=== PATIENT | female | born 1975 | race African-American/Black ===

== ENCOUNTER 2018-02-14 22:21 | Observation (INO) | payer OTHER ==
[~2018-02-14] VITALS: Ht 172.7 cm; Wt 121.9 kg
[2018-02-15] VITALS (13 sets, daily range): BP systolic 112–167; BP diastolic 57–99; PULSE 55–79; RESP 14–20; TEMP 97.6–99.4; O2SAT 97–100
[2018-02-15] MEDS ORDERED: LO LTAB PO (00:32)
[2018-02-15] MEDS ORDERED: ZOFR4TAB3 SL (00:32)
[2018-02-15] MEDS ORDERED: HYOS1TAB9 PO (00:32)
[2018-02-15] MEDS ORDERED: ADDE10 PO (00:32)
--- NOTE | 2018-02-15 00:50 | PD ---
HPI Chief Complaint: GI Complaint Time Seen by Provider: 00:38 Travel History International Travel<30 days: No Contact w/Intl Traveler<30days: No Traveled to known affect area: No History of Present Illness HPI The patient is a 42-year-old female that complains of nausea for 3 weeks which is intermittent and vomiting just today. She has abdominal pain which at its worst would be a 7/10 and intermittent and sharp/cramping sensation. She denies any blood in the stool. She denies any melanotic or bloody stools. She denies any fever. She has some slight loose stools but denies diarrhea. She states she takes control pills regularly and cannot be . [facility] Past Medical History ADD: Yes Diminished Hearing: No Hypertension: Yes (controlled by diet) Tetanus Vaccination: < 5 Years Influenza Vaccination: No ?: Not LMP: 01/27/18 Past Surgical History Surgical History: No Previous Surgery Social History Alcohol Use: No Tobacco Use: No Substance Use: No Allergies-Medications (Allergen,Severity, Reaction): Coded Allergies: Penicillins (Verified Allergy, Severe, Swelling, 02/15/18) Rash Reported Meds & Prescriptions Reported Meds & Active Scripts Active Reported Adderall (Amphetamine-Dextroamphetamine) 10 Mg Tab 10 Mg PO DIRECTED Take 10 mg in the morning & 5 mg (1/2 tab) at noon. Lo Loestrin Fe 1/10 (Norethindrone-Ethinyl Estradiol-Fe) 1-10 Mg-Mcg Tab 1 Tab PO DAILY Review of Systems Except as stated in HPI: all other systems reviewed are Neg Physical Exam Narrative GENERAL: The patient is alert, oriented 3, minimally dehydrated appearing in minimal apparent distress with abdominal discomfort. Her vital signs show temperature 99.3 and blood pressure 167/95 but are otherwise normal. SKIN: Focused skin assessment warm/dry. HEAD: Atraumatic. Normocephalic. EYES: Pupils equal and round. No scleral icterus. No injection or drainage. ENT: No nasal bleeding or discharge. Mucous membranes pink and moist. NECK: Trachea midline. No JVD. CARDIOVASCULAR: Regular rate and rhythm. No murmur appreciated. RESPIRATORY: No accessory muscle use. Clear to auscultation. Breath sounds equal bilaterally. GASTROINTESTINAL: Abdomen soft, with minimal discomfort to deep direct palpation in the midline epigastrium, nondistended. Hepatic and splenic margins not palpable. No guarding or rebound is present. No flank tenderness is present. MUSCULOSKELETAL: No obvious deformities. No clubbing. No cyanosis. No edema. NEUROLOGICAL: Awake and alert. No obvious cranial nerve deficits. Motor grossly within normal limits. Normal speech. PSYCHIATRIC: Appropriate mood and affect; insight and judgment normal. Data Data Last Documented VS Vital Signs Date Time Temp Pulse Resp B/P (MAP) Pulse Ox O2 Delivery O2 Flow Rate FiO2 02/15/18 00:54 98 Room Air 02/15/18 00:25 18 02/15/18 00:24 76 02/15/18 00:02 99.3 Orders Orders Complete Blood Count With Diff (02/15/18 00:33) Comprehensive Metabolic Panel (02/15/18 00:33) Urinalysis - C+S If Indicated (02/15/18 00:33) Ed Urine Pregnancytest Poc (02/15/18 00:33) Iv Access Insert/Monitor (02/15/18 00:33) Oximetry (02/15/18 00:33) Lipase (02/15/18 00:33) Urine Culture (02/15/18 00:49) Levofloxacin 500 Mg Premix Inj (Levaquin (02/15/18 02:00) Sodium Chlor 0.9% 1000 Ml Inj (Ns 1000 M (02/15/18 02:00) Ondansetron Inj (Zofran Inj) (02/15/18 02:00) Admit Order (Ed Use Only) (02/15/18 02:25) Labs Laboratory Tests Test 02/15/18 00:49 White Blood Count 9.2 TH/MM3 Red Blood Count 4.70 MIL/MM3 Hemoglobin 12.2 GM/DL Hematocrit 37.6 % Mean Corpuscular Volume 80.0 FL Mean Corpuscular Hemoglobin 25.9 PG Mean Corpuscular Hemoglobin Concent 32.4 % Red Cell Distribution Width 13.4 % Platelet Count 371 TH/MM3 Mean Platelet Volume 8.7 FL Neutrophils (%) (Auto) 49.5 % Lymphocytes (%) (Auto) 27.1 % Monocytes (%) (Auto) 5.6 % Eosinophils (%) (Auto) 15.6 % Basophils (%) (Auto) 2.2 % Neutrophils # (Auto) 4.6 TH/MM3 Lymphocytes # (Auto) 2.5 TH/MM3 Monocytes # (Auto) 0.5 TH/MM3 Eosinophils # (Auto) 1.4 TH/MM3 Basophils # (Auto) 0.2 TH/MM3 CBC Comment DIFF FINAL Differential Comment Urine Color YELLOW Urine Turbidity SL CLOUDY Urine pH 5.5 Urine Specific [place] 1.015 Urine Protein NEG mg/dL Urine Glucose (UA) NEG mg/dL Urine Ketones NEG mg/dL Urine Occult Blood TRACE Urine Nitrite NEG Urine Bilirubin NEG Urine Urobilinogen 0.2 MG/DL Urine Leukocyte Esterase MOD Urine RBC 0-3 /hpf Urine WBC 20-24 /hpf Urine Squamous Epithelial Cells > 8 /hpf Urine Bacteria MANY /hpf Microscopic Urinalysis Comment CULTURE INDICATED Blood Urea Nitrogen 6 MG/DL Creatinine 0.63 MG/DL Random Glucose 109 MG/DL Total Protein 8.0 GM/DL Albumin 3.5 GM/DL Calcium Level 9.1 MG/DL Alkaline Phosphatase 67 U/L Aspartate Amino Transf (AST/SGOT) 10 U/L Alanine Aminotransferase (ALT/SGPT) 11 U/L Total Bilirubin 0.3 MG/DL Sodium Level 138 MEQ/L Potassium Level 3.5 MEQ/L Chloride Level 105 MEQ/L Carbon Dioxide Level 28.2 MEQ/L Anion Gap 5 MEQ/L Estimat Glomerular Filtration Rate 127 ML/MIN Triglycerides Level 85 MG/DL Lipase 3247 U/L [facility] Medical Decision Making Medical Screen Exam Complete: Yes Emergency Medical Condition: Yes Medical Record Reviewed: Yes Interpretation(s) The CBC is normal. The complete metabolic profile is normal. The lipase is 3247. The urine shows moderate leukocyte esterase, 20-24 white cells with many bacteria and culture is indicated. Impressions: Pancreatitis, urinary tract infection Differential Diagnosis Gastritis, gastroenteritis, pancreatitis, small bowel obstruction Narrative Course The patient has pancreatitis. The patient will be admitted to the [facility] service. The patient, according to her history does not abuse alcohol. Possible complications for this pancreatitis or gallstone pancreatitis, viral pancreatitis, hyperlipidemia. Physician Communication Physician Communication I discussed the patient with Dr. Ascencio. Admitting Information Admitting Physician Requests: Admit Scripts Pantoprazole (Pantoprazole) 40 Mg Tab 40 MG PO DAILY for Reflux, #30 TAB 0 Refills Prov: Augustin Mayer MD 02/16/18 Levofloxacin (Levofloxacin) 500 Mg Tablet 500 MG PO DAILY for Infection for 3 Days, #3 TAB 0 Refills Prov: Augustin Mayer MD 02/16/18 Zac Wolf MD Feb 15, 2018 00:50
[2018-02-15 00:58] LABS: BILIRUBIN, URINE NEG (NEG); BLOOD, URINE TRACE (NEG); GLUCOSE,URINE NEG (NEG); KETONE, URINE NEG (NEG); NITRITE,URINE NEG (NEG); PH, URINE 5.5 (5.0-8.5); URINE COLOR YELLOW (YELLW/STRAW); URINE LEUKOCYTE ESTERASE MOD (NEG)
[2018-02-15 00:59] LABS: AUTOMATED NEUTROPHIL # 4.6 TH/MM3 (1.8-7.7); BASOPHIL # 0.2 TH/MM3 (0-0.2); BASOPHIL % 2.2 % (0.0-2.0); EOSINOPHIL # 1.4 TH/MM3 (0-0.4); EOSINOPHIL % 15.6 % (0.0-4.0); HEMATOCRIT 37.6 % (35.0-46.0); HEMOGLOBIN 12.2 GM/DL (11.6-15.3); LYMPH % 27.1 % (9.0-44.0); LYMPHOCYTE # 2.5 TH/MM3 (1.0-4.8); MEAN CORPUSCULAR HEMOGLOBIN 25.9 PG (27.0-34.0); MEAN CORPUSCULAR HGB CONC 32.4 % (32.0-36.0); MEAN PLATELET VOLUME 8.7 FL (7.0-11.0); MONO % 5.6 % (0.0-8.0); MONOCYTE # 0.5 TH/MM3 (0-0.9); NEUT % 49.5 % (16.0-70.0); PLATELET COUNT 371 TH/MM3 (150-450); RED CELL DISTRIBUTION WIDTH 13.4 % (11.6-17.2); WHITE BLOOD COUNT 9.2 TH/MM3 (4.0-11.0)
[2018-02-15 01:04] LABS: BACTERIA, URINE MANY /hpf; RBC, URINE 0-3 /hpf (0-3); SQUAMOUS EPITHELIAL CELL URINE > 8 /hpf (0-5)
[2018-02-15 01:06] LABS: CHLORIDE 105 MEQ/L (98-107); SODIUM (NA) 138 MEQ/L (136-145)
[2018-02-15 01:09] LABS: CALCIUM 9.1 MG/DL (8.5-10.1)
[2018-02-15 01:10] LABS: ALBUMIN 3.5 GM/DL (3.4-5.0); BICARBONATE 28.2 MEQ/L (21.0-32.0); BLOOD UREA NITROGEN 6 MG/DL (7-18); GLUCOSE,RANDOM 109 MG/DL (74-106)
[2018-02-15 01:12] LABS: ALT (GPT) 11 U/L (10-53)
[2018-02-15 01:13] LABS: AST (GOT) 10 U/L (15-37); CREATININE 0.63 MG/DL (0.50-1.00); GLOMERULAR FILTRATION RATE 127 ML/MIN (>89)
[2018-02-15 01:14] LABS: TOTAL BILIRUBIN ADULT 0.3 MG/DL (0.2-1.0)
[2018-02-15 01:15] LABS: ALKALINE PHOSPHATASE 67 U/L (45-117)
[2018-02-15] MEDS ORDERED: ONDANSETRON HCL 4 MG/2 ML VIAL IV ONE (02:00)
[2018-02-15] MEDS ORDERED: LEVOFLOXACIN 500 MG PREMIX INJ 100 ML IV ONE (02:00)
[2018-02-15] MEDS: SODIUM CHLOR 0.9% 1000 ML INJ 1,000 ML IV SCH ×6 (02:22→22:20)
[2018-02-15] MEDS ORDERED: ACETAMINOPHEN/HYDROcodone 325 MG/5 MG TAB PO PRN (02:45)
[2018-02-15] MEDS ORDERED: ONDANSETRON HCL 4 MG/2 ML VIAL IV PUSH PRN (02:45)
--- NOTE | 2018-02-15 03:00 | RADRPT ---
EXAM DATE/TIME: 02/15/2018 02:44 [facility] COMPARISON: No previous studies available for comparison. INDICATIONS : Chest discomfort, nausea for 3 days MEDICAL HISTORY : None. SURGICAL HISTORY : None. ENCOUNTER: Initial ACUITY: 3 days PAIN SCORE: 0/10 LOCATION: Bilateral chest FINDINGS: Single AP view of the chest. Lungs are clear. Cardiomediastinal silhouette within normal limits. No e vidence of pleural effusion or pneumothorax. CONCLUSION: No acute cardiopulmonary disease identified. Enrique Moses MD on February 15, 2018 at 2:57 Board Certified Radiologist. This report was verified electronically.
--- NOTE | 2018-02-15 08:19 | RADRPT ---
EXAM DATE/TIME: 02/15/2018 07:36 [facility] COMPARISON: No previous studies available for comparison. INDICATIONS : Right upper quadrant pain. MEDICAL HISTORY : Hypertension. SURGICAL HISTORY : None. ENCOUNTER: Initial ACUITY: 1 day PAIN SCORE: 6/10 LOCATION: Right upper quadrant MEASUREMENTS: LIVER: 15.8 cm length COMMON DUCT: 4 mm RIGHT KIDNEY: 12.0 x 5.5 x 5.3 cm FINDINGS: LIVER: Normal echotexture without focal lesion or ductal dilatation. Hepatopedal flow within the portal vein . COMMON DUCT: No intraluminal mass or stone visualized. GALLBLADDER: Contains no stones, demonstrates no wall thickening or pericholecystic fluid. PANCREAS: The visualized portions are within normal limits. RIGHT KIDNEY: No evidence of hydronephrosis, stone, or mass. CONCLUSION: Normal examination. Edenilson Flores Jr., MD on February 15, 2018 at 8:15 Board Certified Radiologist. This report was verified electronically.
[2018-02-15] MEDS: PANTOPRAZOLE SODIUM 40 MG VIAL IV PUSH SCH (09:27)
--- NOTE | 2018-02-15 11:43 | MH ---
cc: Luna Jaeger MD DATE OF ADMISSION: 02/15/2018 ADMITTING DIAGNOSIS: Nausea and elevated lipase. HISTORY OF PRESENT ILLNESS: Ms. Stanley is a very pleasant 42-year-old female who states that, since approximately last Sunday, she has been having intermittent episodes of nausea with some abdominal cramping. She states that she did take some Pepto-Bismol for some relief 1 day, which really did not help and finally yesterday she did develop some emesis and dry heaves which brought her to the emergency room. She says the nausea has been intermittent. She is not able to tell me if it is triggered by any particular foods, neither is the cramping. She states her bowel movements have been normal. She has not had any constipation or diarrhea. She has had a little bit of reflux which she attributes to some extra spicy ayala chicken she took, but this was actually last week at the beginning of the week. She denies any use of alcohol or caffeine. She really does not use any nonsteroidals. She uses primarily Tylenol for any discomfort. She does state that during her menses she will get nausea and cramping; however, this is significantly different from that and she uses Tylenol primarily when that happens. If she does use aspirin, she does get some discomfort and nausea. PAST MEDICAL HISTORY: Significant for ADHD. She says she has been told she has had borderline hypertension. PAST SURGICAL HISTORY: Denies. No appendectomy. No cholecystectomy. ALLERGIES: PENICILLIN CAUSES A RASH. MEDICATIONS: Adderall, which she says she takes maybe once a week, and Lo Loestrin Fe which she takes daily. HABITS: She does not smoke or consume alcohol. SOCIAL HISTORY: She is . She and her relocated 2 years ago from [place] for a job in [facility]. 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 She has not established with a primary care doctor here. FAMILY HISTORY: She says there is diabetes as part of her family history. REVIEW OF SYSTEMS: She denies any chest pain, shortness of breath, palpitations. See HPI in terms of abdominal pain. No difficulty with urinating and voiding. She does state that she does get cramps during the time of the month when she would have her cycle. She says, because she is on the control pill, she really does not have a cycle at this point. No numbness or tingling or swelling. PHYSICAL EXAMINATION: VITAL SIGNS: Temperature is 97.8, pulse is 55, respirations 14, blood pressure is 136/70, pulse oximetry on room air is 97%. GENERAL: She is alert and oriented. She is very pleasant and conversant, does not appear to be in any acute distress right now. HEENT: She is normocephalic, atraumatic. EOM is intact. She has got a moist oral mucosa. NECK: Supple. LUNGS: Clear to auscultation bilaterally. HEART: Regular. She has no ectopy. ABDOMEN: Globose. She has slightly diminished bowel sounds throughout. No rebound, no guarding, no tenderness. I am able to palpate rather deeply without eliciting any discomfort. She moves all her extremities well. She has no swelling clubbing, cyanosis or edema. LABORATORY DATA: The lab work that was done when she came into the emergency room showed a white count of 9.2, hemoglobin of 12.2, hematocrit of 37.6, platelet count of 371, eosinophils were 15.6 with basophils of 2.1. Sodium was 138, potassium 3.5, BUN was 5, creatinine was 0.6, random glucose was 109, AST was 10 with an ALT of 11. Her lipase is 3247. Her triglycerides did come in at 85. UA was cloudy with moderate leukocyte esterase and many bacteria. ASSESSMENT AND PLAN: A very pleasant female who presented to the Emergency Room in the middle of the night with some nausea and abdominal cramping with some dry heaves. She was admitted overnight secondary to elevated lipase. This morning I ordered a chest x-ray and a gallbladder ultrasound. She looks pretty comfortable. She really has not required any pain medicines. She has not had any further nausea. I have started her on a PPI. She is tolerating clear liquids. I will go ahead and monitor her during the course of the day. I had placed a GI consult. Hopefully, they will be able to see her today. I am not sure this elevated lipase is actually from a true pancreatitis. In terms of her urine, it looks like she does have a UTI and she has been started on Levaquin as SHE IS ALLERGIC TO PENICILLIN, so she was not given the Rocephin. We will go ahead and continue to follow her culture. Further recommendations as the case develops. Luna Jaeger MD [facility] , 11:15 AM , 11:42 AM
[2018-02-15 13:47] LABS: AUTOMATED NEUTROPHIL # 5.3 TH/MM3 (1.8-7.7); BASOPHIL % 0.5 % (0.0-2.0); HEMATOCRIT 34.7 % (35.0-46.0); LYMPH % 22.2 % (9.0-44.0); LYMPHOCYTE # 1.9 TH/MM3 (1.0-4.8); MEAN CELL VOLUME 80.5 FL (80.0-100.0); MEAN CORPUSCULAR HEMOGLOBIN 25.5 PG (27.0-34.0); MEAN CORPUSCULAR HGB CONC 31.7 % (32.0-36.0); MEAN PLATELET VOLUME 8.8 FL (7.0-11.0); MONO % 6.2 % (0.0-8.0); MONOCYTE # 0.5 TH/MM3 (0-0.9); NEUT % 60.1 % (16.0-70.0); PLATELET COUNT 349 TH/MM3 (150-450); RED BLOOD COUNT 4.31 MIL/MM3 (4.00-5.30); RED CELL DISTRIBUTION WIDTH 13.2 % (11.6-17.2); WHITE BLOOD COUNT 8.8 TH/MM3 (4.0-11.0)
[2018-02-15 13:55] LABS: CHLORIDE 110 MEQ/L (98-107); SODIUM (NA) 143 MEQ/L (136-145)
[2018-02-15 14:18] LABS: ALBUMIN 2.8 GM/DL (3.4-5.0); ALKALINE PHOSPHATASE 57 U/L (45-117); ALT (GPT) 10 U/L (10-53); AST (GOT) 7 U/L (15-37); BICARBONATE 25.4 MEQ/L (21.0-32.0); BLOOD UREA NITROGEN 3 MG/DL (7-18); CALCIUM 8.2 MG/DL (8.5-10.1); CREATININE 0.51 MG/DL (0.50-1.00); GLOMERULAR FILTRATION RATE 162 ML/MIN (>89); GLUCOSE,RANDOM 87 MG/DL (74-106); TOTAL BILIRUBIN ADULT 0.4 MG/DL (0.2-1.0); TOTAL PROTEIN 6.8 GM/DL (6.4-8.2)
--- NOTE | 2018-02-15 16:10 | PD.CONS ---
HPI History of Present Illness This is a 42 year old female previously healthy was in her usual state of health up until about a week ago when she began to experience some mid abdominal cramping type abdominal pain with nausea associated with some dry heaving but she actually vomited bilious material on she denies any fever chills denies any diarrhea constipation denies any hematemesis coffee- ground emesis denies any melena or hematochezia she denies any NSAID use denies any alcohol use denies any family history of any pancreatitis she is currently feeling somewhat better but still having some abdominal discomfort the patient denies any new supplements or medications but does admit to using contraception for the past year and she has been on the same medicine [facility] Past Medical History ADHD borderline hypertension. Past Surgical History none Coded Allergies: Penicillins (Verified Allergy, Severe, Swelling, 02/15/18) Rash Medications Adderall, which she says she takes maybe once a week, and Lo Loestrin Fe which she takes daily. Family History diabetes Social History none Review of Systems Review of systems Patient denies any headache dizziness blurry vision, denies any chest pain shortness of breath cough fever chills, Denies any palpitations or fatigue denies any polyuria dysuria hematuria, denies any numbness tingling or weakness, denies any skin rash pruritus or jaundice, denies any easy bruising or bleeding tendency, denies any recent change in mood GI Exam Vitals I&O Vital Signs Date Time Temp Pulse Resp B/P (MAP) Pulse Ox O2 Delivery O2 Flow Rate FiO2 02/15/18 12:00 97.8 57 14 130/78 (95) 97 02/15/18 08:00 97.8 55 14 136/70 (92) 97 02/15/18 07:47 98 21 02/15/18 06:04 99 21 02/15/18 05:19 99.4 79 20 155/99 (117) 99 02/15/18 05:06 88 16 97 02/15/18 04:24 67 16 112/57 (75) 99 Room Air 02/15/18 02:31 79 16 121/65 (83) 100 Room Air 02/15/18 00:54 98 Room Air 02/15/18 00:25 18 02/15/18 00:24 76 18 160/79 (106) 98 Room Air 02/15/18 00:02 99.3 70 18 167/95 (119) 99 I/O 02/14/18 02/14/18 02/14/18 02/15/18 02/15/18 02/15/18 07:00 15:00 23:00 07:00 15:00 23:00 Intake Total 2200 ml 1000 ml Balance 2200 ml 1000 ml Intake IV Total 2200 ml 1000 ml Imaging Last 48 hours Impressions Gall Bladder Ultrasound 02/15/18 0000 Signed Impressions: Service Date/Time: Thursday, February 15, 2018 07:36 - CONCLUSION: Normal examination. Edenilson Flores Jr., MD Chest X-Ray 02/15/18 0000 Signed Impressions: Service Date/Time: Thursday, February 15, 2018 02:44 - CONCLUSION: No acute cardiopulmonary disease identified. Enrique Moses MD Laboratory Test 02/15/18 00:49 02/15/18 13:20 White Blood Count 9.2 TH/MM3 8.8 TH/MM3 Red Blood Count 4.70 MIL/MM3 4.31 MIL/MM3 Hemoglobin 12.2 GM/DL 11.0 GM/DL Hematocrit 37.6 % 34.7 % Mean Corpuscular Volume 80.0 FL 80.5 FL Mean Corpuscular Hemoglobin 25.9 PG 25.5 PG Mean Corpuscular Hemoglobin Concent 32.4 % 31.7 % Red Cell Distribution Width 13.4 % 13.2 % Platelet Count 371 TH/MM3 349 TH/MM3 Mean Platelet Volume 8.7 FL 8.8 FL Neutrophils (%) (Auto) 49.5 % 60.1 % Lymphocytes (%) (Auto) 27.1 % 22.2 % Monocytes (%) (Auto) 5.6 % 6.2 % Eosinophils (%) (Auto) 15.6 % 11.0 % Basophils (%) (Auto) 2.2 % 0.5 % Neutrophils # (Auto) 4.6 TH/MM3 5.3 TH/MM3 Lymphocytes # (Auto) 2.5 TH/MM3 1.9 TH/MM3 Monocytes # (Auto) 0.5 TH/MM3 0.5 TH/MM3 Eosinophils # (Auto) 1.4 TH/MM3 1.0 TH/MM3 Basophils # (Auto) 0.2 TH/MM3 0.0 TH/MM3 CBC Comment DIFF FINAL DIFF FINAL Differential Comment Urine Color YELLOW Urine Turbidity SL CLOUDY Urine pH 5.5 Urine Specific [place] 1.015 Urine Protein NEG mg/dL Urine Glucose (UA) NEG mg/dL Urine Ketones NEG mg/dL Urine Occult Blood TRACE Urine Nitrite NEG Urine Bilirubin NEG Urine Urobilinogen 0.2 MG/DL Urine Leukocyte Esterase MOD Urine RBC 0-3 /hpf Urine WBC 20-24 /hpf Urine Squamous Epithelial Cells > 8 /hpf Urine Bacteria MANY /hpf Microscopic Urinalysis Comment CULTURE INDICATED Blood Urea Nitrogen 6 MG/DL 3 MG/DL Creatinine 0.63 MG/DL 0.51 MG/DL Random Glucose 109 MG/DL 87 MG/DL Total Protein 8.0 GM/DL 6.8 GM/DL Albumin 3.5 GM/DL 2.8 GM/DL Calcium Level 9.1 MG/DL 8.2 MG/DL Alkaline Phosphatase 67 U/L 57 U/L Aspartate Amino Transf (AST/SGOT) 10 U/L 7 U/L Alanine Aminotransferase (ALT/SGPT) 11 U/L 10 U/L Total Bilirubin 0.3 MG/DL 0.4 MG/DL Sodium Level 138 MEQ/L 143 MEQ/L Potassium Level 3.5 MEQ/L 3.7 MEQ/L Chloride Level 105 MEQ/L 110 MEQ/L Carbon Dioxide Level 28.2 MEQ/L 25.4 MEQ/L Anion Gap 5 MEQ/L 8 MEQ/L Estimat Glomerular Filtration Rate 127 ML/MIN 162 ML/MIN Triglycerides Level 85 MG/DL Lipase 3247 U/L 95 U/L Date/Time Source Procedure Growth Status 02/15/18 00:49 Urine Clean Catch Urine Culture Pending Received Physical Examination HEENT: Pupils round and reactive to light; normocephalic; atraumatic; no jaundice. Throat is clear. NECK: Neck is supple, no JVD, no lymphadenopathy. CHEST: Chest is clear to auscultation and percussion. CARDIAC: Regular rate and rhythm with no murmur gallop or rubs. ABDOMEN: Soft, nondistended, nontender; no hepatosplenomegaly; bowel sounds are present in all four quadrants. EXTREMITIES: No clubbing, cyanosis, or edema. SKIN: Normal; no rash; no jaundice. HISTORIC SITES REGISTRAR: No focal deficits; alert and oriented times three. Assessment and Plan Plan Patient presenting with complaints of abdominal pain, and nausea, she was found to have elevated lipase that has normalized quickly and abruptly Currently the patient appears to be doing better No obvious etiology for what is happening at this point but I feel we need to rule out the possibility of choledocholithiasis as a potential cause for sudden rise of lipase with a sudden decline I will order an MRCP We will continue with hydration and observation and pain control Monitor labs Can consider an EGD but this could also be done on an outpatient basis Further recommendations she will depend on the hospital course Max Ewing MD Feb 15, 2018 16:10
[2018-02-15] MEDS ORDERED: DIATRIZOATE MEGLUM/DIATRIZOATE SOD 9 ML CUP PO ONE (18:00)
[2018-02-16 00:32] VITALS: BP 138/77; PULSE 73; RESP 16; TEMP 97.9; O2SAT 100
[2018-02-16] MEDS ORDERED: LEVOFLOXACIN 500 MG PREMIX INJ 100 ML IV SCH (02:00)
[2018-02-16] MEDS: SODIUM CHLOR 0.9% 1000 ML INJ 1,000 ML IV SCH (06:47)
[2018-02-16 06:50] LABS: AUTOMATED NEUTROPHIL # 3.7 TH/MM3 (1.8-7.7); BASOPHIL # 0.1 TH/MM3 (0-0.2); EOSINOPHIL # 1.6 TH/MM3 (0-0.4); EOSINOPHIL % 18.7 % (0.0-4.0); HEMATOCRIT 34.2 % (35.0-46.0); HEMOGLOBIN 11.3 GM/DL (11.6-15.3); LYMPH % 31.5 % (9.0-44.0); LYMPHOCYTE # 2.7 TH/MM3 (1.0-4.8); MEAN CELL VOLUME 80.2 FL (80.0-100.0); MEAN CORPUSCULAR HEMOGLOBIN 26.5 PG (27.0-34.0); MEAN CORPUSCULAR HGB CONC 33.1 % (32.0-36.0); MEAN PLATELET VOLUME 9.4 FL (7.0-11.0); MONO % 5.4 % (0.0-8.0); MONOCYTE # 0.5 TH/MM3 (0-0.9); NEUT % 43.4 % (16.0-70.0); PLATELET COUNT 365 TH/MM3 (150-450); RED BLOOD COUNT 4.26 MIL/MM3 (4.00-5.30); RED CELL DISTRIBUTION WIDTH 13.6 % (11.6-17.2); WHITE BLOOD COUNT 8.6 TH/MM3 (4.0-11.0)
[2018-02-16 07:03] LABS: CHLORIDE 110 MEQ/L (98-107); SODIUM (NA) 143 MEQ/L (136-145)
[2018-02-16 07:07] LABS: ALBUMIN 2.9 GM/DL (3.4-5.0); BICARBONATE 24.2 MEQ/L (21.0-32.0); BLOOD UREA NITROGEN 5 MG/DL (7-18); CALCIUM 8.5 MG/DL (8.5-10.1); GLUCOSE,RANDOM 102 MG/DL (74-106)
[2018-02-16 07:10] LABS: ALT (GPT) 11 U/L (10-53); AST (GOT) 7 U/L (15-37); CREATININE 0.52 MG/DL (0.50-1.00); GLOMERULAR FILTRATION RATE 158 ML/MIN (>89)
[2018-02-16 07:12] LABS: TOTAL BILIRUBIN ADULT 0.4 MG/DL (0.2-1.0); TOTAL PROTEIN 6.9 GM/DL (6.4-8.2)
[2018-02-16 07:13] LABS: ALKALINE PHOSPHATASE 61 U/L (45-117)
[2018-02-16 07:50] VITALS: BP 129/68; PULSE 60; RESP 20; TEMP 97.2; O2SAT 99
[2018-02-16] MEDS: PANTOPRAZOLE SODIUM 40 MG VIAL IV PUSH SCH (09:32)
[2018-02-16] MEDS ORDERED: POTASSIUM CHLORIDE 10 MEQ CONTROLLED RELEASE TAB PO ONE (10:00)
--- NOTE | 2018-02-16 10:12 | HHI.GIFU ---
Subjective Remarks Pt is resting in bed going for MRCP soon, denies nausea, vomiting or abd pain (Anthony,Laura MONAE) Objective Vitals I&O Vital Signs Date Time Temp Pulse Resp B/P (MAP) Pulse Ox O2 Delivery O2 Flow Rate FiO2 02/16/18 04:11 02/16/18 00:32 97.9 73 16 138/77 (97) 100 02/15/18 20:51 98 21 02/15/18 20:32 97.7 69 18 147/67 (93) 99 02/15/18 16:00 97.6 63 14 131/76 (94) 97 02/15/18 12:00 97.8 57 14 130/78 (95) 97 I/O 02/15/18 02/15/18 02/15/18 02/16/18 02/16/18 02/16/18 07:00 15:00 23:00 07:00 15:00 23:00 Intake Total 2200 ml 1000 ml 444 ml 1100 ml Balance 2200 ml 1000 ml 444 ml 1100 ml Intake Oral 444 ml IV Total 2200 ml 1000 ml 1100 ml # Voids 5 5 # Bowel Movements 1 Laboratory Laboratory Tests Test 02/15/18 13:20 02/16/18 05:30 White Blood Count 8.8 8.6 Red Blood Count 4.31 4.26 Hemoglobin 11.0 11.3 Hematocrit 34.7 34.2 Mean Corpuscular Volume 80.5 80.2 Mean Corpuscular Hemoglobin 25.5 26.5 Mean Corpuscular Hemoglobin Concent 31.7 33.1 Red Cell Distribution Width 13.2 13.6 Platelet Count 349 365 Mean Platelet Volume 8.8 9.4 Neutrophils (%) (Auto) 60.1 43.4 Lymphocytes (%) (Auto) 22.2 31.5 Monocytes (%) (Auto) 6.2 5.4 Eosinophils (%) (Auto) 11.0 18.7 Basophils (%) (Auto) 0.5 1.0 Neutrophils # (Auto) 5.3 3.7 Lymphocytes # (Auto) 1.9 2.7 Monocytes # (Auto) 0.5 0.5 Eosinophils # (Auto) 1.0 1.6 Basophils # (Auto) 0.0 0.1 CBC Comment DIFF FINAL DIFF FINAL Differential Comment Blood Urea Nitrogen 3 5 Creatinine 0.51 0.52 Random Glucose 87 102 Total Protein 6.8 6.9 Albumin 2.8 2.9 Calcium Level 8.2 8.5 Alkaline Phosphatase 57 61 Aspartate Amino Transf (AST/SGOT) 7 7 Alanine Aminotransferase (ALT/SGPT) 10 11 Total Bilirubin 0.4 0.4 Sodium Level 143 143 Potassium Level 3.7 3.2 Chloride Level 110 110 Carbon Dioxide Level 25.4 24.2 Anion Gap 8 9 Estimat Glomerular Filtration Rate 162 158 Lipase 95 95 Date/Time Source Procedure Growth Status 02/15/18 00:49 Urine Clean Catch Urine Culture Pending Received Imaging Last Impressions Gall Bladder Ultrasound 02/15/18 0000 Signed Impressions: Service Date/Time: Thursday, February 15, 2018 07:36 - CONCLUSION: Normal examination. Edenilson Flores Jr., MD Chest X-Ray 02/15/18 0000 Signed Impressions: Service Date/Time: Thursday, February 15, 2018 02:44 - CONCLUSION: No acute cardiopulmonary disease identified. Enrique Moses MD Physical Exam HEENT: Pupils round and reactive to light; normocephalic; atraumatic CHEST: Chest is clear to auscultation and percussion. CARDIAC: Regular rate and rhythm with no murmur gallop or rubs. ABDOMEN: Soft, nondistended, nontender; no hepatosplenomegaly; bowel sounds are present in all four quadrants. EXTREMITIES: No clubbing, cyanosis, or edema. SKIN: Normal; no rash; no jaundice. LINE APPLIANCE ASSEMBLER: No focal deficits; alert and oriented times three. (Laura Cruz) Assessment and Plan Plan - Acute pancreatitis- No obvious etiology. Lipase normalized, LFTs wnl, US negative, MRCP pending Plan: - low fat diet - Await MRCP - IV hydration and pain control - Monitor labs - Can consider an EGD but this could also be done on an outpatient basis Patient seen and examined by Dr. Saunders and myself and this note is written on his behalf (Laura Cruz) Physician Comments Seen and examined wby TIMBER HARVESTER OPERATOR, acute pancreatitis of unclear etiology. Discussed with Dr. Mayer, pt discharged home today with GI fu in 1 week. Thank you (Rachell Saunders MD) Laura Cruz Feb 16, 2018 10:12 Rachell Saunders MD Feb 16, 2018 17:11
--- NOTE | 2018-02-16 11:22 | RADRPT ---
EXAM DATE/TIME: 02/16/2018 10:54 [facility] COMPARISON: No previous studies available for comparison. INDICATIONS : Pancreatitis. Abdominal pain. MEDICAL HISTORY : None. SURGICAL HISTORY : None. ENCOUNTER: Initial ACUITY: 1 day PAIN SCORE: 4/10 LOCATION: Upper abdomen. TECHNIQUE: Multiplanar, multisequence magnetic resonance imaging of the abdomen was performed. High-resolution 3D dataset was utilized to reconstruct maximum-intensity projection (MIP) images. FINDINGS: INTRAHEPATIC BILE DUCTS: Within normal limits. No significant anatomical variant is present. EXTRAHEPATIC BILE DUCTS: The common bile duct measures 2 mm No stone or filling defect is identified. GALLBLADDER: No stones, wall thickening, or pericholecystic fluid. LIVER: Normal size and signal intensity. No concerning liver lesion is identified on this non-contrast exam. PANCREAS: The main pancreatic duct is normal in size. There is no significant anatomical variant. Signal inte nsity is within normal limits. No mass is visualized on this non-contrast exam. The adjacent fat alexa roberto are preserved. OTHER: The remaining visualized structures demonstrate no acute abnormality on this non-contrast exam. CONCLUSION: Normal MRI appearance of the pancreas without evidence of edema. Normal evaluation of the biliary sys tem. No evidence of stones.. Luisa Terrell MD on February 16, 2018 at 11:18 Board Certified Radiologist. This report was verified electronically.
[2018-02-16 11:50] VITALS: BP 144/96; PULSE 70; RESP 20; TEMP 97.5; O2SAT 99
--- NOTE | 2018-02-16 13:29 | HHI.PR ---
Subjective Remarks She has no further nausea or abdominal pain. She is eating and drinking without symptoms. Objective Vitals Vital Signs Date Time Temp Pulse Resp B/P (MAP) Pulse Ox O2 Delivery O2 Flow Rate FiO2 02/16/18 11:50 97.5 70 20 144/96 (112) 99 02/16/18 07:50 97.2 60 20 129/68 (88) 99 02/16/18 04:11 02/16/18 00:32 97.9 73 16 138/77 (97) 100 02/15/18 20:51 98 21 02/15/18 20:32 97.7 69 18 147/67 (93) 99 02/15/18 16:00 97.6 63 14 131/76 (94) 97 Result Diagram: 02/16/18 0530 02/16/18 0530 Other Results Laboratory Tests Test 02/15/18 00:49 02/15/18 13:20 02/16/18 05:30 White Blood Count 9.2 TH/MM3 8.8 TH/MM3 8.6 TH/MM3 Red Blood Count 4.70 MIL/MM3 4.31 MIL/MM3 4.26 MIL/MM3 Hemoglobin 12.2 GM/DL 11.0 GM/DL 11.3 GM/DL Hematocrit 37.6 % 34.7 % 34.2 % Mean Corpuscular Volume 80.0 FL 80.5 FL 80.2 FL Mean Corpuscular Hemoglobin 25.9 PG 25.5 PG 26.5 PG Mean Corpuscular Hemoglobin Concent 32.4 % 31.7 % 33.1 % Red Cell Distribution Width 13.4 % 13.2 % 13.6 % Platelet Count 371 TH/MM3 349 TH/MM3 365 TH/MM3 Mean Platelet Volume 8.7 FL 8.8 FL 9.4 FL Neutrophils (%) (Auto) 49.5 % 60.1 % 43.4 % Lymphocytes (%) (Auto) 27.1 % 22.2 % 31.5 % Monocytes (%) (Auto) 5.6 % 6.2 % 5.4 % Eosinophils (%) (Auto) 15.6 % 11.0 % 18.7 % Basophils (%) (Auto) 2.2 % 0.5 % 1.0 % Neutrophils # (Auto) 4.6 TH/MM3 5.3 TH/MM3 3.7 TH/MM3 Lymphocytes # (Auto) 2.5 TH/MM3 1.9 TH/MM3 2.7 TH/MM3 Monocytes # (Auto) 0.5 TH/MM3 0.5 TH/MM3 0.5 TH/MM3 Eosinophils # (Auto) 1.4 TH/MM3 1.0 TH/MM3 1.6 TH/MM3 Basophils # (Auto) 0.2 TH/MM3 0.0 TH/MM3 0.1 TH/MM3 CBC Comment DIFF FINAL DIFF FINAL DIFF FINAL Differential Comment Urine Color YELLOW Urine Turbidity SL CLOUDY Urine pH 5.5 Urine Specific [place] 1.015 Urine Protein NEG mg/dL Urine Glucose (UA) NEG mg/dL Urine Ketones NEG mg/dL Urine Occult Blood TRACE Urine Nitrite NEG Urine Bilirubin NEG Urine Urobilinogen 0.2 MG/DL Urine Leukocyte Esterase MOD Urine RBC 0-3 /hpf Urine WBC 20-24 /hpf Urine Squamous Epithelial Cells > 8 /hpf Urine Bacteria MANY /hpf Microscopic Urinalysis Comment CULTURE INDICATED Blood Urea Nitrogen 6 MG/DL 3 MG/DL 5 MG/DL Creatinine 0.63 MG/DL 0.51 MG/DL 0.52 MG/DL Random Glucose 109 MG/DL 87 MG/DL 102 MG/DL Total Protein 8.0 GM/DL 6.8 GM/DL 6.9 GM/DL Albumin 3.5 GM/DL 2.8 GM/DL 2.9 GM/DL Calcium Level 9.1 MG/DL 8.2 MG/DL 8.5 MG/DL Alkaline Phosphatase 67 U/L 57 U/L 61 U/L Aspartate Amino Transf (AST/SGOT) 10 U/L 7 U/L 7 U/L Alanine Aminotransferase (ALT/SGPT) 11 U/L 10 U/L 11 U/L Total Bilirubin 0.3 MG/DL 0.4 MG/DL 0.4 MG/DL Sodium Level 138 MEQ/L 143 MEQ/L 143 MEQ/L Potassium Level 3.5 MEQ/L 3.7 MEQ/L 3.2 MEQ/L Chloride Level 105 MEQ/L 110 MEQ/L 110 MEQ/L Carbon Dioxide Level 28.2 MEQ/L 25.4 MEQ/L 24.2 MEQ/L Anion Gap 5 MEQ/L 8 MEQ/L 9 MEQ/L Estimat Glomerular Filtration Rate 127 ML/MIN 162 ML/MIN 158 ML/MIN Triglycerides Level 85 MG/DL Lipase 3247 U/L 95 U/L 95 U/L A repeat potassium level is ordered for 2:00PM today. Imaging Last Impressions Cholangiopancreatography MRI 02/16/18 0000 Signed Impressions: Service Date/Time: Friday, February 16, 2018 10:54 - CONCLUSION: Normal MRI appearance of the pancreas without evidence of edema. Normal evaluation of the biliary system. No evidence of stones.. Luisa Terrell MD Gall Bladder Ultrasound 02/15/18 0000 Signed Impressions: Service Date/Time: Thursday, February 15, 2018 07:36 - CONCLUSION: Normal examination. Edenilson Flores Jr., MD Chest X-Ray 02/15/18 0000 Signed Impressions: Service Date/Time: Thursday, February 15, 2018 02:44 - CONCLUSION: No acute cardiopulmonary disease identified. Enrique Moses MD Objective Remarks Exam: Obese black female in no distress. HEENT: No scleral icterus, pupils equal Neck. No JVD Heart: RRR without murmurs Lungs: Clear Abdomen: Soft, nontender Extremities: No edema Neuro: oriented, alert A/P Assessment and Plan Assessment: --Transient episode of acute pancreatitis of questionable etiology--symptoms resolved --UTI2 --Minimal hypokalemia Plan: She was ordered some additional potassium orally this morning and a repeat potassium level is to be done around 2:00PM today. Her pancreatitis has clinically resolved and she is tolerating a diet without symptoms. Her MRCP was just completed and negative. I talked with Dr Sky and he stated it would be okay to discharge her later today and she can followup with their office if she has further problems. I will leave her a script for Levaquin 500mg daily x 3 day and a script for Pantoprazole 40mg daily for one month. If her repeat potassium is still a little low I will order some oral potassium chloride to take for a few days a home. She can followup with her PCP within one week also. Augustin Mayer MD Feb 16, 2018 13:29
[2018-02-16] MEDS ORDERED: LEVO500T8 PO (14:52)
[2018-02-16] MEDS ORDERED: PANT40TA3 PO (14:52)
== END 2018-02-16 16:10 | disposition home or self-care (01) ==
LOC: PHED 22:21 → PHEDA 02-15 02:28 → PH3A 02-15 05:11
PROVIDERS: ADMIT Legal Medicine; ATTEND Legal Medicine
DX: K85.90 Acute pancreatitis without necrosis or infection, unspecified (principal); N39.0 Urinary tract infection, site not specified; I10 Essential (primary) hypertension; F90.9 Attention-deficit hyperactivity disorder, unspecified type; K21.9 Gastro-esophageal reflux disease without esophagitis; Z83.3 Family history of diabetes mellitus
CPT/HCPCS: 71045; 74181; 76377; 76705; 80053; 81001; 83690; 84132; 84478; 84703; 85025; 87086; 96361; 96365; 96366; 96375; 96376; 99285; C9113; G0378; J1956; J2405; J7030; Q9963